=== PATIENT | female | born 2000 | race Caucasian/White ===

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

== ENCOUNTER 2018-09-23 09:11 | Emergency (ER) | payer OTHER ==
[2018-09-23 09:16] VITALS: BP 116/77
--- NOTE | 2018-09-23 09:39 | EDPHY ---
General Time Seen by Provider: 09/23/18 09:18 Narrative: CLINICAL IMPRESSION: Probable vocal cords spasms ASSESSMENT/PLAN: 18-year-old female with no reported significant medical history presents to the emergency department with a resolved episode of inspiratory stridor, throat pain, palpitations, and chest tightness that occurred last night. She had borrowed some friends albuterol as well as antianxiety medication and admits that this improved her symptoms. She has no history of asthma but does report occasional allergies and reactive airway disease. She has no complaints on arrival today aside from some tightness in the throat which she attributes to musculoskeletal tension. She is tolerating secretions well, no hoarseness, clinical signs of exudative pharyngitis, Bruce's angina, or epiglottitis. Lungs are clear with no audible expiratory wheezing or crackles. No hypoxia , tachycardia, and vital signs are stable. No lower extremity edema or calf asymmetry, no complaints of pleuritic pain and no risk factors for DVT or PE. I suspect patient's symptoms are due to intermittent vocal cord spasms as she described inspiratory difficulties breathing and a stridorous noise. She admits to underlying history of anxiety but is not currently medicated for this. We discussed PCP follow-up, ENT evaluation, and possible counseling or behavioral therapy for anxiety. Patient is comfortable with this plan and will follow up as an outpatient. Warning signs return to ED sooner outlined and discharge and person. DIFFERENTIAL DX: Differential includes but not limited to reactive airway disease, bronchitis, vocal cord spasms, laryngitis, pneumonia ED PROCEDURES: See lab and/or imaging results below ED COURSE: CHIEF COMPLAINT: Resolved shortness of breath and throat pain HPI: 18-year-old female presents to the emergency department with her friend for evaluation of resolved shortness of breath and throat pain that occurred last night. Patient reports she was at her boyfriend's house and for approximately 4 hr was experiencing palpitations, tremors, difficulty breathing in, and feeling throat tightness. No coinciding URI symptoms, cough, fever, chills. No recent surgery. She traveled by air from [place] over 1 month ago. No reported lower extremity edema or calf asymmetry. No personal or family history of DVT or PE. She denies chest pain. She admits taking a friend's albuterol, propranolol, and buspirone with improvement in her symptoms. She admits to a history of anxiety but does not take any medication for this however has come to the emergency department before and received Ativan. She does not currently work with counseling her behavioral health. She has no complaints in the ED today aside from some mild anterior neck tightness. She is tolerating secretions well and states she has been able to eat and drink without difficulty. PAST MEDICAL HISTORY: Seasonal allergies, reported history of anxiety See nurse/triage notes for additional history if applicable Pertinent Past Surgical History: Tonsillectomy Family History: None reported Social History: Student at [employer] nonsmoker REVIEW OF SYSTEMS: All other systems negative Constitutional: No fever, no chills, appetite change. ENT: Positive for sore throat, congestion, ear pain. Cardiovascular: No chest pain, no palpitations. Respiratory: No cough, positive for resolved shortness of breath. Musculoskeletal: No back pain, joint swelling, joint pain, myalgias. Skin: No rashes, color change. Neurological: No headache, dizziness, weakness. PHYSICAL EXAM: General Appearance: Alert, oriented, appropriate, cooperative, thin, NAD, well hydrated, non-toxic appearing, VSS, no hypoxia, tolerating secretions well. HEENT: TMs are clear bilaterally no perforation or FB, no injection, no evidence of serous or mucopurulent otitis. Oropharynx clear is no erythema or exudates,. Dentition without abnormality. Eyes: PERRLA, no acute vision change, nystagmus, swelling, discharge, pain or photosensitivity. Conjunctiva pink, no pallor or injection Neck: Supple, nontender, no lymphadenopathy, no midline pain, FROM, no meningismus. Respiratory: There are no retractions, lungs are clear to auscultation. Cardiac: Regular rate and rhythm, no murmurs or gallops. Neurological: [ Alert and oriented x 3, CN 2-12 grossly intact Skin: Warm, dry, no rashes, no nodules on palpation. Musculoskeletal: Extremities are symmetrical, full range of motion, no tenderness, deformity, swelling, or erythema. No calf asymmetry, erythema or warmth Psychiatric: Patient is oriented X 3, there is no agitation. MEDICAL DECISION MAKING: Patient was seen independently. Secondary supervising physician at time of evaluation was Dr. Bishop. Diagnosis: Vocal cord dysfunction, situational anxiety. New, requires workup Summary: See Assessment and Plan for summary of ED visit Patient Progress: Improved. - History Smoking Status: Never smoked - Objective Vital Signs: Initial Vital Signs Temperature (C) 36.6 C 09/23/18 09:14 Heart Rate 84 09/23/18 09:14 Respiratory Rate 18 09/23/18 09:14 Blood Pressure 116/77 09/23/18 09:14 O2 Sat (%) 98 09/23/18 09:14 O2 Delivery Mode Room Air Allergies/Adverse Reactions: No Known Allergies Allergy (Verified 09/23/18 09:13) Home Medications: Medication Instructions Recorded NK [No Known Home Meds] 09/23/18 Departure - Departure Disposition: Home, Routine, Self-Care Clinical Impression: Vocal cord dysfunction, Situational anxiety Condition: Good Instructions: Anxiety (ED) Additional Instructions: DISCHARGE INSTRUCTIONS FROM YOUR DOCTOR Thank you for visiting our emergency department today. Please keep in mind that discharge from the emergency department does not mean that there is nothing wrong - it simply means that we have not identified an emergency condition that requires further evaluation or treatment in the hospital. You should always plan to follow up with primary care for re-evaluation of your condition in the next 2-3 days. If you have been referred to a specialist, please call as soon as possible (today or tomorrow) to schedule your follow up appointment at the appropriate time. YOU HAVE A REASSURING PHYSICAL EXAM IN THE EMERGENCY DEPARTMENT. VITAL SIGNS ARE STABLE, LUNGS ARE CLEAR, YOU HAVE NO HYPOXIA, AND NO CLINICAL SIGNS OF BACTERIAL UPPER OR LOWER RESPIRATORY INFECTION. BASED ON YOUR HISTORY, IT SOUNDS THOUGH YOU MAY HAVE INTERMITTENT VOCAL CORD DYSFUNCTION WHICH IS SPASMING OF THE VOCAL CORDS. THIS MAY BE EXACERBATED BY SEASONAL ALLERGIES, MILD REACTIVE AIRWAY DISEASE, OR SITUATIONAL ANXIETY. PLEASE MONITOR SYMPTOMS CLOSELY, IF YOU EXPERIENCE SIMILAR DIFFICULTIES WITH TIGHTNESS SPECIFICALLY WITH BREATHING IN, TRY PURSED LIP BREATHING OR PRETENDING LIKE YOUR BREATHING IN THROUGH A STRAW. I DID GIVE YOU A REFERRAL TO LARYNGOLOGY IF YOUR SYMPTOMS PERSIST. RETURN TO THE EMERGENCY DEPARTMENT FOR RETURN OF SHORTNESS OF BREATH, DIFFICULTY BREATHING, CHEST PAIN, PAIN WITH DEEP INSPIRATION, LEG SWELLING, FEVERS, OR ANY OTHER CONCERN. People present with illnesses and injuries in different ways, and it is always possible that we have missed something. You may always return for re-evaluation if symptoms worsen or if they are not improving or if you develop new/different symptoms. Again, thank you for choosing our emergency department. We hope that you feel better. Referrals: NONE *PRIMARY CARE P,. [Primary Care Provider] - As per Instructions [facility] [Clinic] - As per Instructions Ricky Sharif MD [Medical Doctor] - As per Instructions
== END 2018-09-23 09:53 | disposition home or self-care (01) ==
DX: J38.3 Other diseases of vocal cords (principal); F43.22 Adjustment disorder with anxiety